=== PATIENT | male | born 1975 | race African-American/Black ===

== ENCOUNTER 2018-10-13 21:42 | Observation (INO) | payer MEDICAID ==
[2018-10-13] MEDS ORDERED: ASPIRIN 81 MG TABLET, CHEWABLE PO ONE (22:00)
--- NOTE | 2018-10-13 22:38 | RADIOLOGY REPORT (SQ) ---
EXAM DESCRIPTION: XR CHEST 1 VIEW COMPLETED DATE/TME: 10/13/2018 22:00 CLINICAL HISTORY: 43 years, Male, cp COMPARISON: 11/02/2014 chest NUMBER OF VIEWS: 1 TECHNIQUE: Portable chest LIMITATIONS: None. FINDINGS: Heart size normal. Lungs are clear. No pneumothorax. Surgical clips upper abdomen IMPRESSION: No acute cardiopulmonary process copyright 2010 [employer]- All Rights Reserved
[2018-10-13 22:49] LABS: ABSOLUTE EOSINOPHILS # (AUTO) 0.1 10^3/uL (0.0-0.6); ABSOLUTE LYMPHOCYTES (AUTO) 1.3 10^3/uL (0.5-4.7); ABSOLUTE MONOCYTES (AUTO) 0.6 10^3/uL (0.1-1.4); BASOPHILS % (AUTO) 0.9 % (0-2); EOSINOPHILS % (AUTO) 1.8 % (0-6); HEMATOCRIT 47.1 % (37.9-51.0); HEMOGLOBIN 15.9 g/dL (13.5-17.0); LYMPHOCYTES % (AUTO) 32.1 % (13-45); MEAN CORPUSCULAR HEMOGLOBIN 23.6 pg (27.0-33.4); MEAN CORPUSCULAR HGB CONC 33.7 g/dL (32.0-36.0); MEAN CORPUSCULAR VOLUME 70 fl (80-97); MONOCYTES % (AUTO) 15.7 % (3-13); PLATELET COUNT 129 10^3/uL (150-450); RED BLOOD COUNT 6.74 10^6/uL (4.35-5.55); RED CELL DISTRIBUTION WIDTH 18.5 % (11.5-14.0); SEGMENTED NEUTROPHILS % (AUTO) 49.5 % (42-78); TOTAL CELLS COUNTED % (AUTO) 100 %
[2018-10-13 23:12] LABS: ALANINE AMINOTRANSFERASE 106 U/L (21-72); ALBUMIN 4.4 g/dL (3.5-5.0); ALKALINE PHOSPHATASE 142 U/L (38-126); ANION GAP 9 (5-19); ASPARTATE AMINO TRANSFERASE 113 U/L (17-59); BILIRUBIN,DIRECT 0.3 mg/dL (0.0-0.4); BILIRUBIN,TOTAL 1.3 mg/dL (0.2-1.3); BLOOD UREA NITROGEN 11 mg/dL (7-20); CALCIUM 9.5 mg/dL (8.4-10.2); CARBON DIOXIDE 29 mmol/L (22-30); CHLORIDE 100 mmol/L (98-107); CREATINE KINASE 193 U/L (55-170); GLUCOSE 97 mg/dL (75-110); SODIUM 137.7 mmol/L (137-145)
[2018-10-13 23:24] LABS: CREATINE KINASE MB 2.31 ng/mL (<4.55)
[2018-10-13 23:26] LABS: TROPONIN I < 0.012 ng/mL
--- NOTE | 2018-10-14 00:27 | ER Document Report ---
ED Cardiac - General Chief Complaint: Palpitations Stated Complaint: CHEST PAIN Time Seen by Provider: 10/14/18 00:02 Primary Care Provider: FAHEEM MENDOZA MD [COMMUNITY BASED STAFF] - Follow up as needed TRAVEL OUTSIDE OF THE [place] IN LAST 30 DAYS: No - HPI Notes: Patient is a 43-year-old male that presents to the emergency department for chief complaint of palpitations. Patient reports intermittent palpitations starting yesterday. He states it feels like his heart is beating quickly. The symptoms last for a few seconds and then resolved. He states one time today he had some associated lightheadedness but denied any full syncopal event. He states he laid down on the ground and his symptoms resolved after a few seconds. He denies any chest pain, dyspnea, diaphoresis, nausea and vomiting. He denies any back pain to me although it was reported to nursing staff. Patient states he has had a lot going on. He is in town visiting family and reports being in a house with his 16 siblings. He states he has felt very overwhelmed and anxious recently. He denies history of cardiac disease in the past. He states he has had similar episodes while being on the monitor in the ED. Past Medical History: Asthma, hypertension, gout, hyperlipidemia Past Surgical History: Gastric sleeve Social History: Occasional alcohol, occasional tobacco, denies drug use Family History: Reviewed and noncontributory for presenting illness Allergies: Reviewed, see documented allergy list. REVIEW OF SYSTEMS: CONSTITUTIONAL : No fever No chills No diaphoresis No recent illness EENT: No vision changes No congestion No sore throat CARDIOVASCULAR: No chest pain palpitations RESPIRATORY: No shortness of breath No cough No difficulty breathing GASTROINTESTINAL: No abdominal pain No nausea No vomiting No diarrhea GENITOURINARY: No dysuria No hematuria No difficulty urinating MUSCULOSKELETAL: No back pain No leg pain No arm pain SKIN: No rashes No lesions LYMPHATIC: No swollen, enlarged glands. NEUROLOGICAL: lightheadedness No headache No weakness No paresthesias PSYCHIATRIC: No anxiety No depression PHYSICAL EXAMINATION: Vital signs reviewed, nursing noted reviewed. GENERAL: Well-appearing, well-nourished and in no acute distress. HEAD: Atraumatic, normocephalic. EYES: Eyes appear normal, extraocular movements intact, sclera anicteric, conjunctiva are normal. ENT: nares patent, oropharynx clear without exudates. Moist mucous membranes. NECK: Normal range of motion, supple without lymphadenopathy LUNGS: Breath sounds clear to auscultation bilaterally and equal. No wheezes rales or rhonchi. HEART: Regular rate and rhythm without murmurs ABDOMEN: Soft, nontender, normoactive bowel sounds. No rebound, guarding, or rigidity. No masses appreciated. EXTREMITIES: Nontender, good range of motion, no pitting or edema. NEUROLOGICAL: No focal neurological deficits. Moves all extremities spontaneously Motor and sensory grossly intact on exam. PSYCH: Normal mood, normal affect. SKIN: Warm, Dry, normal turgor, no rashes or lesions noted on exposed skin - Related Data Allergies/Adverse Reactions: NSAIDS (Non-Steroidal Anti-Inflamma [Nsaids] Allergy (Severe, Verified 11/03/15 13:03) KIDNEY FAILURE iodine [Iodine] Allergy (Verified 07/09/15 21:13) Seafood Allergy (Severe, Uncoded 07/09/15 21:13) Past Medical History - Social History Smoking Status: Current Every Day Smoker Chew tobacco use (# tins/day): No Frequency of alcohol use: Occasional Drug Abuse: None Family History: Reviewed & Not Pertinent Patient has suicidal ideation: No Patient has homicidal ideation: No - Past Medical History Cardiac Medical History: Reports: Hx Congestive Heart Failure, Hx Heart Attack, Hx Hypertension Denies: Hx Coronary Artery Disease Pulmonary Medical History: Reports: Hx Asthma Denies: Hx Bronchitis, Hx COPD, Hx Pneumonia Neurological Medical History: Reports: Hx Seizures. Denies: Hx Cerebrovascular Accident Endocrine Medical History: Reports: Hx Diabetes Mellitus Type 2 Renal/ Medical History: Denies: Hx Peritoneal Dialysis Musculoskeletal Medical History: Denies Hx Arthritis Psychiatric Medical History: Reports: Hx Post Traumatic Stress Disorder Denies: Hx Depression Traumatic Medical History: Reports: Hx Fractures Past Surgical History: Reports: Hx Abdominal Surgery - gastric sleeve (jun 27), Hx Cholecystectomy, Hx Orthopedic Surgery - Recent left ankle surgery yesterday - Immunizations Hx Diphtheria, Pertussis, Tetanus Vaccination: Yes Hx Pneumococcal Vaccination: 09/30/13 Physical Exam - Vital signs Vitals: Temp Pulse Resp BP Pulse Ox 99.0 F 92 16 126/83 H 94 10/13/18 22:02 10/13/18 22:02 10/13/18 22:02 10/13/18 22:02 10/13/18 22:02 Course - Re-evaluation Re-evalutation: 10/14/18 00:26 Vitals reviewed. Nursing notes reviewed. Patient is resting comfortably in no acute distress. His lab work today shows thrombocytopenia which is slightly more than he has had previously. He did have a gastric sleeve surgery done 3 months ago and his thrombocytopenia may have been related to his recent surgery. Patient's EKG shows runs of PVCs. The runs are at a rate of about 90. He has had multiple episodes of palpitations that coincide with runs of PVCs on his telemetry monitoring. He has remained hemodynamically stable. Patient is on defibrillator pads in case the runs become persistent and he does not cardiovert himself. I did discuss his EKG with Dr. Burns who recommends metoprolol 25 twice daily. Patient's magnesium is slightly low at 1.5 and he will be given 2 g IV replacement magnesium. Patient will be admitted to the [facility] for further telemetry and cardiac care. Case discussed with Dr. Iniguez who accepts admission. Laboratory 10/13/18 10/13/18 10/13/18 22:37 22:37 22:37 WBC 4.0 RBC 6.74 H Hgb 15.9 Hct 47.1 MCV 70 L MCH 23.6 L MCHC 33.7 RDW 18.5 H Plt Count 129 L Seg Neutrophils % 49.5 Lymphocytes % 32.1 Monocytes % 15.7 H Eosinophils % 1.8 Basophils % 0.9 Absolute Neutrophils 2.0 Absolute Lymphocytes 1.3 Absolute Monocytes 0.6 Absolute Eosinophils 0.1 Absolute Basophils 0.0 Sodium 137.7 Potassium 4.0 Chloride 100 Carbon Dioxide 29 Anion Gap 9 BUN 11 Creatinine 0.77 Est GFR ( Amer) > 60 Est GFR (Non-Af Amer) > 60 Glucose 97 Calcium 9.5 Magnesium 1.5 L Total Bilirubin 1.3 Direct Bilirubin 0.3 Neonat Total Bilirubin Not Reportable Neonat Direct Bilirubin Not Reportable Neonat Indirect Bili Not Reportable AST 113 H ALT 106 H Alkaline Phosphatase 142 H Creatine Kinase 193 H CK-MB (CK-2) 2.31 Troponin I < 0.012 Total Protein 8.0 Albumin 4.4 Chest X-Ray 10/13/18 22:00 IMPRESSION: No acute cardiopulmonary process copyright 2011 [employer]- All Rights Reserved 10/14/18 00:46 - Vital Signs Vital signs: Temp Pulse Resp BP Pulse Ox 99.0 F 92 16 126/83 H 94 10/13/18 22:02 10/13/18 22:02 10/13/18 22:02 10/13/18 22:02 10/13/18 22:02 - Laboratory Result Diagrams: 10/13/18 22:37 10/13/18 22:37 Laboratory results interpreted by me: 10/13/18 10/13/18 22:37 22:37 RBC 6.74 H MCV 70 L MCH 23.6 L RDW 18.5 H Plt Count 129 L Monocytes % 15.7 H Magnesium 1.5 L AST 113 H ALT 106 H Alkaline Phosphatase 142 H Creatine Kinase 193 H - EKG Interpretation by Me Additional EKG results interpreted by me: 10/14/18 00:35 Interpreted by myself Normal sinus rhythm, rate 87, runs of PVCs, normal axis, no ST elevation Critical Care Note - Critical Care Note Total time excluding time spent on procedures (mins): 35 Comments: 35 minutes of critical care time spent in direct contact evaluating and reevaluating the patient, treating symptoms, reviewing labs and studies and speaking with family and consultants excluding any procedures. Patient having ventricular dysrhythmia with high potential for cardiovascular decompensation Discharge - Discharge Clinical Impression: Frequent PVCs, Heart palpitations Condition: Stable Disposition: ADMITTED INPATIENT Admitting Provider: Hospitalist Unit Admitted: IMCU Referrals: FAHEEM MENDOZA MD [COMMUNITY BASED STAFF] - Follow up as needed
[2018-10-14] MEDS ORDERED: METOPROLOL TARTRATE 25 MG TABLET PO SCH (00:45)
[2018-10-14] MEDS: MAGNESIUM SULFATE/D5W 1 GM/100 ML RTUPB IV SCH ×2 (00:54→02:01)
[2018-10-14] MEDS ORDERED: MAG HYDROX/AL HYDROX/SIMETH SUSP 30 ML UDCUP PO PRN (01:29)
[2018-10-14] MEDS ORDERED: MAGNESIUM HYDROXIDE SUSP 30 ML UDCUP PO PRN (01:29)
[2018-10-14] MEDS ORDERED: ACETAMINOPHEN 325 MG TABLET PO PRN (01:29)
[2018-10-14] MEDS ORDERED: NICOTINE 21 MG/24 HR PATCH.TD24 TD PRN (01:29)
[2018-10-14] MEDS ORDERED: MORPHINE SULFATE 10 MG/ML INJ IV PRN ×5 (01:29→08:00)
[2018-10-14] MEDS ORDERED: NITROGLYCERIN 0.4 MG/TAB 25 TAB/BOTTLE SL PRN (01:29)
[2018-10-14] MEDS ORDERED: ONDANSETRON 4 MG TAB.RAPDIS PO PRN ×2 (01:31→08:00)
[2018-10-14] MEDS ORDERED: ONDANSETRON HCL INJ/PF 4 MG/2 ML SDV IV PRN ×2 (01:31→08:00)
[2018-10-14] MEDS ORDERED: ZOLPIDEM TARTRATE 5 MG TABLET PO PRN (01:31)
--- NOTE | 2018-10-14 05:46 | PDOC H&P ---
History of Present Illness Admission Date/PCP: 10/14/2018 Patient complains of: Palpitations History of Present Illness: TRAE NIEVES is a 43 year old male who presented to the emergency room with a 1 day history of palpitations. He admits that over the last day having numerous episodes of irregular beating of his heart lasting for a few seconds and being slightly faster than his usual heartbeat. These episodes had been generally painless but have gradually become accompanied by a sharp pain in his left chest with each event. They occur anywhere from 8-10 times per hour down to not occ urring for a period of several hours. They have not woken him from sleep. He views his palpitations is being of moderate to severe in nature and further admits an episode of near syncope with one episode lasting several seconds yesterday. He has a past history of hypertension but denies similar prior episodes and has not identified any aggravating or ameliorating factors for his palpitations. He does admit to being under more stress than usual as he is visiting with his family of 16 siblings and he reports having anxiety associated with some of the recent interactions with his family. Past Medical History Cardiac Medical History: Reports: Congestive Heart Failure, Myocardial Infarction, Hypertension Denies: Coronary Artery Disease Pulmonary Medical History: Reports: Asthma Denies: Bronchitis, Chronic Obstructive Pulmonary Disease (COPD), Pneumonia EENT Medical History: Denies: Cataracts, Nose - Nasal polyps Neurological Medical History: Reports: Seizures Denies: Hemorrhagic CVA, Ischemic CVA Endocrine Medical History: Reports: Diabetes Mellitus Type 2, Obesity Denies: Diabetes Mellitus Type 1, Hyperthyroidism, Hypothyroidism Renal/ Medical History: Denies: Chronic Kidney Disease, Nephrolithiasis Malignancy Medical History: Reports: None GI Medical History: Denies: Cirrhosis, Hepatitis Musculoskeltal Medical History: Denies: Arthritis, Gout Skin Medical History: Denies: Eczema, Psoriasis Psychiatric Medical History: Reports: Post Traumatic Stress Disorder Denies: Alcohol Dependency, Depression, Substance Abuse, Tobacco Dependency Traumatic Medical History: Reports: None Hematology: Reports: Anemia Denies: Bleeding Tendencies Infectious Medical History: Reports: None Past Surgical History Past Surgical History: Reports: Cholecystectomy, Orthopedic Surgery - Recent left ankle surgery yesterday, Other - Gastric sleeve bariatric surgery Social History Information Source: Patient Lives with: Alone Smoking Status: Current Every Day Smoker Frequency of Alcohol Use: None Hx Recreational Drug Use: No Drugs: None Hx Prescription Drug Abuse: No - Advance Directive Resuscitation Status: Full Code Surrogate healthcare decision maker:: Mother Family History Family History: CAD, Hypertension Parental Family History Reviewed: Yes Children Family History Reviewed: No Sibling(s) Family History Reviewed.: Yes Medication/Allergy Home Medications: Metoprolol Succinate 50 mg PO DAILY #30 tab.er.24h 09/30/13 Alprazolam [Xanax] 1 tab PO TIDP PRN 02/23/14 Oxycodone HCl/Acetaminophen [Percocet 10-325 Mg Tablet] 1 each PO Q6HP PRN 07/09/15 Albuterol Sulfate [Proair HFA] 2 puff IH Q4HP PRN 11/03/15 Amphet Asp/Amphet/D-Amphet [Adderall 30 mg Tablet] 1 tab PO DAILY 11/03/15 Lisdexamfetamine Dimesylate [Vyvanse] 1 cap PO DAILY 11/03/15 Nifedipine [Nifedical Xl] 1 tab PO DAILY 11/03/15 Prazosin HCl 1 cap PO QHS 11/03/15 Allergies/Adverse Reactions: NSAIDS (Non-Steroidal Anti-Inflamma [Nsaids] Allergy (Severe, Verified 11/03/15 13:03) KIDNEY FAILURE iodine [Iodine] Allergy (Verified 07/09/15 21:13) Seafood Allergy (Severe, Uncoded 07/09/15 21:13) Review of Systems Constitutional: ABSENT: chills, fever(s) Eyes: ABSENT: visual disturbances, other - Eye pain Ears: ABSENT: hearing changes, other - Ear pain Nose, Mouth, and Throat: ABSENT: mouth pain, sore throat Cardiovascular: PRESENT: as per HPI, palpitations, other - Near syncope. ABSENT: chest pain, dyspnea on exertion, edema, orthropnea Respiratory: PRESENT: cough. ABSENT: dyspnea Gastrointestinal: ABSENT: abdominal pain, constipation, diarrhea, nausea, vomiting Genitourinary: ABSENT: dysuria, hematuria Musculoskeletal: ABSENT: deformity, joint swelling Integumentary: ABSENT: pruritus, rash Neurological: ABSENT: confusion, convulsions, focal weakness, memory loss Psychiatric: ABSENT: anxiety, depression Endocrine: ABSENT: cold intolerance, heat intolerance Hematologic/Lymphatic: ABSENT: easy bleeding, easy bruising Physical Exam Vital Signs: Temp Pulse Resp BP Pulse Ox 99.0 F 92 15 125/87 H 99 10/13/18 22:02 10/13/18 22:02 10/14/18 00:01 10/14/18 00:01 10/14/18 00:01 Intake & Output 10/12/18 10/13/18 10/14/18 23:59 23:59 23:59 Weight 124.7 kg General appearance: PRESENT: no acute distress, cooperative, obese Head exam: PRESENT: atraumatic, normocephalic Eye exam: PRESENT: conjunctiva pink. ABSENT: scleral icterus Ear exam: PRESENT: normal external ear exam. ABSENT: bleeding, drainage Mouth exam: PRESENT: dry mucosa, neck supple Neck exam: ABSENT: thyromegaly, tracheal deviation Respiratory exam: PRESENT: clear to auscultation alphonso, symmetrical, unlabored Cardiovascular exam: PRESENT: RRR. ABSENT: clicks, gallop, rubs Pulses: PRESENT: normal radial pulses, normal dorsalis pedis pul Vascular exam: PRESENT: normal capillary refill. ABSENT: pallor GI/Abdominal exam: PRESENT: normal bowel sounds, soft Rectal exam: PRESENT: deferred Extremities exam: ABSENT: joint swelling, pedal edema Musculoskeletal exam: PRESENT: full ROM, normal inspection Neurological exam: PRESENT: alert, oriented to person, oriented to place, oriented to time, oriented to situation, CN II-XII grossly intact. ABSENT: motor sensory deficit Psychiatric exam: PRESENT: appropriate affect, normal mood Skin exam: PRESENT: dry, intact, warm. ABSENT: jaundice, rash, urticaria Results Laboratory Results: 10/13/18 22:37 10/13/18 22:37 10/13/18 10/13/18 22:37 22:37 WBC 4.0 RBC 6.74 H Hgb 15.9 Hct 47.1 MCV 70 L MCH 23.6 L MCHC 33.7 RDW 18.5 H Plt Count 129 L Seg Neutrophils % 49.5 Lymphocytes % 32.1 Monocytes % 15.7 H Eosinophils % 1.8 Basophils % 0.9 Absolute Neutrophils 2.0 Absolute Lymphocytes 1.3 Absolute Monocytes 0.6 Absolute Eosinophils 0.1 Absolute Basophils 0.0 Sodium 137.7 Potassium 4.0 Chloride 100 Carbon Dioxide 29 Anion Gap 9 BUN 11 Creatinine 0.77 Est GFR ( Amer) > 60 Est GFR (Non-Af Amer) > 60 Glucose 97 Calcium 9.5 Magnesium 1.5 L Total Bilirubin 1.3 AST 113 H ALT 106 H Alkaline Phosphatase 142 H Total Protein 8.0 Albumin 4.4 10/13/18 10/13/18 22:37 22:37 Creatine Kinase 193 H CK-MB (CK-2) 2.31 Troponin I < 0.012 Impressions: Chest X-Ray 10/13/18 22:00 IMPRESSION: No acute cardiopulmonary process copyright 2010 [employer]- All Rights Reserved Assessment & Plan - Diagnosis (1) Paroxysmal cardiac arrhythmia Is this a current diagnosis for this admission?: Yes Plan: Patient will be monitored closely throughout his hospitalization with telemetry and a variety of metabolic and other pathologic factors will be considered as sources of his paroxysmal arrhythmias. A cardiology consultation will be obtained with Dr. Burns to further evaluate patient. (2) Near syncope Is this a current diagnosis for this admission?: Yes Plan: Patient be monitored with telemetry during his hospital course and his vital signs will be checked on a regular basis. He will be continued on his usual antihypertensive medications and any further episodes of syncope or near syncope will be investigated as necessary. (3) Heart palpitations Is this a current diagnosis for this admission?: Yes Plan: Patient be monitored with telemetry during his hospital course and his vital signs will be checked on a regular basis. He will be continued on his usual antihypertensive medications as they are approved by Dr. Burns location later today. (4) Obesity Qualifiers: Obesity type: due to excess calories Serious obesity comorbidity presence: with serious comorbidity Body mass index: BMI 39.0-39.9 Is this a current diagnosis for this admission?: Yes Plan: Patient will be encouraged to make an effort at weight loss since his recent bariatric procedure by following lifestyle recommendations and diet choices given to him by his bariatric surgeon. - Time Time Spent: 30 to 50 Minutes Critical Time spent with patient: Less than 15 minutes Medications reviewed and adjusted accordingly: Yes Anticipated discharge: Home - Inpatient Certification Based on my medical assessment, after consideration of the patient's comorbidities, presenting symptoms, or acuity I expect that the services needed warrant INPATIENT care.: Yes I certify that my determination is in accordance with my understanding of Medicare's requirements for reasonable and necessary INPATIENT services [42 CFR 412.3e].: Yes Medical Necessity: Significant Comorbidiites Make Outpatient Treatment Too Risky, Need Close Monitoring Due to Risk of Patient Decompensation, Need For Continuous Telemetry Monitoring, Risk of Complication if Not Cared For in Hospital
[2018-10-14] MEDS ORDERED: HEPARIN SOD (PORCINE) 5,000 UNIT/ML 1 ML SYRINGE SUBCUT SCH (06:00)
[2018-10-14 08:28] LABS: CREATINE KINASE MB 1.46 ng/mL (<4.55)
[2018-10-14 08:31] LABS: TROPONIN I < 0.012 ng/mL
--- NOTE | 2018-10-14 09:54 | PDOC CONSULTATION ---
Consultation-Blank Consultation: CARDIOLOGY CONSULTATION/TRANSFER SUMMARY by Dr. Cammy Burns on 10/14/2018. Patient seen at 8 AM on 10/14/2018. 60 minutes spent on this patient more than 50% of time spent in direct patient care. THIS patient will patient being transferred to [facility] for EP studies to assess origin of the PVCs, and to see if the patient has an axillary pathway causing preexcitation. FINAL DIAGNOSIS ON TRANSFER 1. Symptomatic PVCs with a left bundle branch block configuration.? Right ventricular origin.: Need to assess for RV dysplasia. 2. Preexcitation versus fusion beats. EP study will define if the patient has an accessory pathway causing preexcitation. 3. Palpitations and near syncope secondary to 1., And possibly to. Although yesterday was the first episode of near syncope, the patient has had long- standing episodic palpitations, with lightheadedness off and on. 4. Hypertension: Blood pressure seems to be well controlled on nifedipine. 5. History of sleep apnea on CPAP, although the past few days he has not used it. Note that the patient's palpitations are long-standing and have occurred even when he regularly uses the BiPAP at night. 6. Mild hypomagnesemia. Corrected. 7. Obesity. Current Medications Generic Name Dose Route Start Last Admin Trade Name Freq PRN Reason Stop Dose Admin Acetaminophen 650 mg 10/14/18 01:29 10/14/18 04:09 Tylenol 325 Mg Tablet PO 11/13/18 01:28 650 mg Q4HP PRN Administration For headache, pain or fever Al Hydrox/Mg Hydrox/Simethicone 30 ml 10/14/18 01:29 10/14/18 04:14 Maalox Plus Susp 30 Udcup PO 11/13/18 01:28 30 ml Q6HP PRN Administration HEARTBURN Docusate Sodium 100 mg 10/14/18 10:00 10/14/18 09:28 Colace 100 Mg Capsule PO 11/13/18 09:59 Not Given BID ANGEL Heparin Sodium (Porcine) 5,000 unit 10/14/18 06:00 10/14/18 06:07 Heparin Inj 5,000 Units/Ml 1 Ml Syringe SUBCUT 11/13/18 05:59 5,000 unit Q8 ANGEL Administration Magnesium Hydroxide 30 ml 10/14/18 01:29 Milk Of Magnesia 30 Ml Udcup PO 11/13/18 01:28 HSP PRN FOR CONSTIPATION Morphine Sulfate 3 mg 10/14/18 07:48 Morphine 10 Mg/Ml Inj IV 10/21/18 07:47 Q2HP PRN FOR PAIN SCALE 3-4 Protocol Morphine Sulfate 4 mg 10/14/18 07:49 Morphine 10 Mg/Ml Inj IV 10/21/18 07:48 Q2HP PRN FOR PAIN SCALE 5 Protocol Morphine Sulfate 2 mg 10/14/18 08:00 Morphine 10 Mg/Ml Inj IV 10/21/18 07:47 Q2HP PRN FOR PAIN SCALE 1-2 Protocol Nicotine 1 each 10/14/18 01:29 Nicoderm 21 Mg/24 Hr Transderm Patch TD 11/13/18 01:28 DAILYP PRN WITHDRAWAL SYMPTOMS Nitroglycerin 1 tab 10/14/18 01:29 Nitrostat 0.4 Mg (1/150 Gr) Tabs 25/Bottle SL 11/13/18 01:28 Q5MP PRN FOR CHEST PAIN Ondansetron HCl 4 mg 10/14/18 08:00 Zofran Inj/Pf 4 Mg/2 Ml Sdv IV 11/13/18 01:30 Q4HP PRN FOR NAUSEA/VOMITING Ondansetron HCl 4 mg 10/14/18 08:00 Zofran Odt 4 Mg Tablet PO 11/13/18 01:30 Q4HP PRN FOR NAUSEA/VOMITING Sodium Chloride 2.5 ml 10/14/18 06:00 10/14/18 06:07 Saline Flush 2.5 Ml Monoject Prefil Syrin IV 11/13/18 05:59 2.5 ml Q8 ANGEL Administration Zolpidem Tartrate 10 mg 10/14/18 01:31 Ambien 5 Mg Tablet PO 10/21/18 01:30 HSP PRN SLEEP OR INSOMNIA Discontinued Medications Generic Name Dose Route Start Last Admin Trade Name Freq PRN Reason Stop Dose Admin Aspirin 324 mg 10/13/18 22:00 10/13/18 22:12 Aspirin 81 Mg Chewable Tablet PO 10/13/18 22:01 324 mg NOW ONE Administration Magnesium Sulfate/Dextrose 1 gm in 100 mls @ 100 mls/hr 10/14/18 00:45 10/14/18 03:02 Magnesium Sulfate Rtu-D5w 1 Gm/100 Ml Premix IV 10/14/18 02:44 Infused Q1H ANGEL Infusion Metoprolol Tartrate 25 mg 10/14/18 00:45 10/14/18 00:54 Lopressor 25 Mg Tablet PO 11/13/18 00:44 25 mg BID ANGEL Administration Morphine Sulfate 0 mg 10/14/18 01:29 Morphine 10 Mg/Ml Inj IV 10/21/18 01:28 Q2HP PRN Pain Per [facility] 5 point scale SD Protocol Morphine Sulfate 2 mg 10/14/18 07:48 Morphine 10 Mg/Ml Inj IV 10/21/18 07:47 Q2HP PRN PRE PAIN SCALE 1-2 Protocol Ondansetron HCl 4 mg 10/14/18 01:31 Zofran Inj/Pf 4 Mg/2 Ml Sdv IV 11/13/18 01:30 Q4HP PRN FOR NAUSEA/VOMITING Ondansetron HCl 4 mg 10/14/18 01:31 Zofran Odt 4 Mg Tablet PO 11/13/18 01:30 Q4HP PRN FOR NAUSEA/VOMITING HISTORY OF PRESENT ILLNESS: Patient is a pleasant 43-year-old -[place] male, with known history of hypertension, obesity, and obstructive sleep apnea on CPAP states that recently he has been visiting his family of 16 siblings, and has had increased stress. He also noted to have noticed yesterday that he had palpitations which is states is a skipped beat, with occasional lightheadedness, but with no chest pain, or shortness of breath. It is not related to exertion, and there is not increased or brought on by exertion. He had one episode of a few seconds of near syncope yesterday. He denies any PND orthopnea or yaima syncope. There is no leg edema. There is no focal weaknesses of the extremities. He denies any headaches, or any acute pain anywhere in the body. The patient in the emergency room was found to have a magnesium of 1.5, which is mildly reduced, and this has been replaced by 1 g of intravenous magnesium sulfate. PAST MEDICAL HISTORY: Denies history of coronary artery disease or ID or anginal symptoms. No history of congestive heart failure. History of hypertension present. No history of diabetes mellitus. No history of thyroid disease. He has a history of asthma and does use inhalers a little more frequently in the recent past few days. But he has had a long-standing history of using inhalers for his asthma, and this is not increased or seems to be related to the patient's palpitations. He does have sleep apnea and uses BiPAP. There is no history of chronic kidney disease. There is no history of TIA or CVA symptoms. Although the patient is under a lot of stress in the past few days, he has no definite diagnosis of anxiety or depression. There is no history of sudden . Past SURGICAL HISTORY: He Has Fusion of His Left Ankle Due To a Fracture. He has had bariatric surgery/gastric bypass surgery for weight loss. FAMILY HISTORY: Is positive for myocardial infarction in his brother. There is no history of sudden . ALLERGIES: The patient is allergic to shellfish, iodine and nonsteroidal anti- inflammatory drugs. SOCIAL HISTORY: The patient quit smoking 2 years ago. But states that he did smoke in a libertarian 3 days ago. There is no history of street drug abuse. There is no history of alcohol abuse. Note that the patient to be November,. DISPOSITION: The patient is a full code. His mother is his surrogate healthcare decision maker. REVIEW OF SYSTEMS: CONSTITUTIONAL: Denies any fever chills or rigors. There is no generalized fatigue or weakness. HEAD: Denies headaches or head injury. EYES: No history of amblyopia diplopia. No history of amaurosis fugax. EARS: N o history of hearing loss. No history of tinnitus. No history of recurrent ear infections. NOSE: No history of hayfever. No history of nasal polyps. No history of nosebleeds. MOUTH: No history of altered taste sensation. No ulcers in the mouth. No bleeding from the gums. THROAT: No history of odynophagia or dysphagia. No history of recurrent sore throats. SKIN: No history of pruritus. No history of yellowish discoloration of the skin. LUNGS: History of asthma present. Mild intermittent. Extrinsic asthma. He did use an inhaler a few days ago. No history of COPD. No history of pulmonary embolism. No hemoptysis. No history of pleuritic chest pain. No symptoms of upper or lower respiratory tract infection. History of sleep apnea uses BiPAP, although he is not used it in couple of days. HEART: History of hypertension present. History of long-standing palpitations. History of near syncope, but no yaima syncope. No history of congestive heart failure. No history of coronary artery disease, ID or anginal symptoms. No history of PND orthopnea or leg edema. No history of sudden . ENDOCRINE: No history of diabetes mellitus or thyroid disease. No history of polydipsia polyuria. No history of heat or cold intolerance. MUSCULOSKELETAL: Denies arthritis or collagen vascular disease. METABOLIC: History of obesity. He states he has lost weight after bariatric surgery. RENAL: No history of chronic kidney disease. No history of hematuria pyuria or dysuria. No history of symptoms of enlarged prostate. GI: NO HISTORY OF GERD. NO HISTORY OF PEPTIC ULCER DISEASE. NO HISTORY OF GI BLEED. NO HISTORY OF FATTY FOOD INTOLERANCE. NO HISTORY OF ASCITES. NO HISTORY OF JAUNDICE. NO HISTORY OF ALTERED BOWEL MOVEMENTS. CUTTER TENDER: No history of TIA CVA. No history of headaches migraines or seizures. PSYCHIATRIC: No definite history of anxiety or depression, although the patient recently has been in a lot of stress due to family issues. No suicidal ideation. No homicidal ideation. VASCULAR: No history of calf or buttock claudication. No history of DVT. HEMATOLOGICAL: No history of anemia.. No history of bleeding diathesis. No history of clotting disorders. No history of sickle cell anemia. No history of blood dyscrasias. PHYSICAL EXAMINATION: The patient is moderately obese. He is well-groomed. He is in no acute distress. 10/14/18 08:32 Temperature 98.2 F Temperature Oral Source Pulse Rate 77 Respiratory 13 Rate Blood Pressure 133/62 H Blood Pressure 85 Mean BP Location Right Arm BP Position Supine O2 Sat by Pulse 99 Oximetry Oxygen Delivery Room Air Method HEAD: Is atraumatic normocephalic. EYES: Pupils are equal round regular reactive to light accommodation. Extraocular movements are normal. There is no conjunctival l pallor. There is no scleral icterus. EARS: Tympanic memories are intact. External auditory canals are clear. EYES: Pupils are equal round regular reactive to light accommodation, there is no clinical pallor. There is no scleral icterus. NOSE: Nasal mucous membranes are without any inflammation. There is no deviated nasal septum. MOUTH: Mucous mucous members of the mouth are moist. Tongue is moist. There is no ulcers in the mouth. There is no bleeding from the gums. THROAT: There is no redness of the oropharynx. There is no exudates. SKIN: There is no petechia or ecchymosis. There is no skin lesions or skin rashes. NECK: Is supple. There is no JVD. Carotids are equal without any bruits. There is no transmitted murmurs over the carotids. There is no carotid delay. There is no lymphadenopathy. There is no goiter. There is no accessory muscle respiration use. Trachea central. LUNGS: Is clear to auscultation percussion, without any rhonchi rales or wheezing.. There is no chest wall tenderness on palpation. HEART: S1-S2 is heard. There is no S3 gallop. There is no S4 gallop. S1 is of normal intensity. There is systolic murmur left sternal border and the apex. There is no rub. ABDOMEN: Is soft. Nontender. There is no masses. Bowel sounds are normal. There is no hepatosplenomegaly. There is no rebound, guarding or rigidity. EXTREMITIES: Femorals are well felt. There is no femoral bruits. Leg pulses are well felt. There is no pedal edema. There is no DVT or cellulitis. There is no calf tenderness. No cyanosis or clubbing capillary refill is normal. CUTTER TENDER: The patient is conscious awake alert oriented x3 with no focal deficit. PSYCHIATRIC: The patient judgment and insight are intact. His affect is normal. THE patient's EKG shows sinus rhythm. There PVCs of the left bundle branch configuration. There is also wide complex beats the differential of which is fusion beats versus ventricular preexcitation. Chest X-Ray 10/13/18 22:00 IMPRESSION: No acute cardiopulmonary process copyright 2011 [employer]- All Rights Reserved Labs- Entire Visit 10/13/18 10/13/18 10/13/18 22:37 22:37 22:37 WBC 4.0 RBC 6.74 H Hgb 15.9 Hct 47.1 MCV 70 L MCH 23.6 L MCHC 33.7 RDW 18.5 H Plt Count 129 L Seg Neutrophils % 49.5 Lymphocytes % 32.1 Monocytes % 15.7 H Eosinophils % 1.8 Basophils % 0.9 Absolute Neutrophils 2.0 Absolute Lymphocytes 1.3 Absolute Monocytes 0.6 Absolute Eosinophils 0.1 Absolute Basophils 0.0 Sodium 137.7 Potassium 4.0 Chloride 100 Carbon Dioxide 29 Anion Gap 9 BUN 11 Creatinine 0.77 Est GFR ( Amer) > 60 Est GFR (Non-Af Amer) > 60 Glucose 97 Calcium 9.5 Magnesium 1.5 L Total Bilirubin 1.3 Direct Bilirubin 0.3 Neonat Total Bilirubin Not Reportable Neonat Direct Bilirubin Not Reportable Neonat Indirect Bili Not Reportable AST 113 H ALT 106 H Alkaline Phosphatase 142 H Creatine Kinase 193 H CK-MB (CK-2) 2.31 Troponin I < 0.012 Total Protein 8.0 Albumin 4.4 10/14/18 10/14/18 10/14/18 02:00 07:40 07:40 WBC RBC Hgb Hct MCV MCH MCHC RDW Plt Count Seg Neutrophils % Lymphocytes % Monocytes % Eosinophils % Basophils % Absolute Neutrophils Absolute Lymphocytes Absolute Monocytes Absolute Eosinophils Absolute Basophils Sodium Potassium Chloride Carbon Dioxide Anion Gap BUN Creatinine Est GFR ( Amer) Est GFR (Non-Af Amer) Glucose Calcium Magnesium Total Bilirubin Direct Bilirubin Neonat Total Bilirubin Neonat Direct Bilirubin Neonat Indirect Bili AST ALT Alkaline Phosphatase Creatine Kinase 155 CK-MB (CK-2) 1.46 Troponin I < 0.012 < 0.012 Total Protein Albumin Albuterol Sulfate [Proair Hfa Inhalation Aerosol 8.5 gm Mdi] 2 puff IH Q4HP PRN 10/14/18 Multivitamin [One-A-Day Essential] 1 each PO DAILY 10/14/18 Nifedipine [Nifedipine ER] 30 mg PO DAILY 10/14/18 PLAN: The patient was discussed with Dr. Reyes, EP amusement ride operator at [facility] in [place], who agrees the patient would benefit from a EP study. The patient has been kept n.p.o. We will transfer the patient to [facility]. The patient is aware of the risks and benefits of the transfer. Medical decision making is of high complexity. 60 minutes spent on this patient with more than 50% of time spent in direct patient care.
[2018-10-14] MEDS ORDERED: DOCUSATE SODIUM 100 MG CAPSULE PO SCH (10:00)
--- NOTE | 2018-10-14 10:02 | PDOC PROGRESS REPORT ---
Subjective Progress Note for:: 10/14/18 Subjective:: Patient being transferred to [facility] for cardiac arrhythmia. Reason For Visit: PAROXYSMAL CARDIAC ARRHYTYMIA Physical Exam Vital Signs: Temp Pulse Resp BP Pulse Ox 98.2 F 77 13 133/62 H 99 10/14/18 08:32 10/14/18 08:32 10/14/18 08:32 10/14/18 08:32 10/14/18 08:32 Intake & Output 10/13/18 10/14/18 10/15/18 06:59 06:59 06:59 Intake Total 200 Balance 200 Weight 122.4 kg General appearance: PRESENT: mild distress - Anxious about transfer Head exam: PRESENT: normocephalic Respiratory exam: PRESENT: clear to auscultation alphonso. ABSENT: rales, rhonchi, wheezes Cardiovascular exam: PRESENT: RRR, +S1, +S2 GI/Abdominal exam: PRESENT: normal bowel sounds, soft. ABSENT: tenderness Neurological exam: PRESENT: alert, awake, oriented to person, oriented to place, oriented to time, oriented to situation, CN II-XII grossly intact Psychiatric exam: PRESENT: anxious Results Laboratory Results: 10/13/18 22:37 10/13/18 22:37 10/13/18 10/13/18 22:37 22:37 WBC 4.0 RBC 6.74 H Hgb 15.9 Hct 47.1 MCV 70 L MCH 23.6 L MCHC 33.7 RDW 18.5 H Plt Count 129 L Seg Neutrophils % 49.5 Lymphocytes % 32.1 Monocytes % 15.7 H Eosinophils % 1.8 Basophils % 0.9 Absolute Neutrophils 2.0 Absolute Lymphocytes 1.3 Absolute Monocytes 0.6 Absolute Eosinophils 0.1 Absolute Basophils 0.0 Sodium 137.7 Potassium 4.0 Chloride 100 Carbon Dioxide 29 Anion Gap 9 BUN 11 Creatinine 0.77 Est GFR ( Amer) > 60 Est GFR (Non-Af Amer) > 60 Glucose 97 Calcium 9.5 Magnesium 1.5 L Total Bilirubin 1.3 AST 113 H ALT 106 H Alkaline Phosphatase 142 H Total Protein 8.0 Albumin 4.4 10/13/18 10/13/18 10/14/18 22:37 22:37 02:00 Creatine Kinase 193 H CK-MB (CK-2) 2.31 Troponin I < 0.012 < 0.012 10/14/18 10/14/18 07:40 07:40 Creatine Kinase 155 CK-MB (CK-2) 1.46 Troponin I < 0.012 Impressions: Chest X-Ray 10/13/18 22:00 IMPRESSION: No acute cardiopulmonary process copyright 2011 [employer]- All Rights Reserved Assessment & Plan - Diagnosis (1) Paroxysmal cardiac arrhythmia Is this a current diagnosis for this admission?: Yes Plan: The patient was evaluated by Dr. Burns. It appears that the patient may have Obous-Rsysdnxft-Nbzir arrhythmia. Dr. Burns has arranged transfer to [facility]. I saw the patient to review the transfer with regard to consent and benefits of transfer. The patient is in agreement. Please see Dr. Burns's note for transfer summary. - Time Time Spent with patient: Less than 15 minutes Anticipated discharge: [facility] Within: within 24 hours
--- NOTE | 2018-10-14 12:40 | EKG REPORT ---
SEVERITY:- ABNORMAL ECG - SINUS RHYTHM LEFT BUNDLE BRANCH BLOCK : Confirmed by: Cammy Burns MD 14-Oct-2018 12:40:12
--- NOTE | 2018-10-14 12:43 | EKG REPORT ---
SEVERITY:- ABNORMAL ECG - SINUS RHYTHM PVC'S IN LIMB LEADS..FUSION BEATS VERSUS PRE-EXCITATION IN THE VLEADS V4TO V6. : Confirmed by: Cammy Burns MD 14-Oct-2018 12:42:17
[2018-10-14 14:46] LABS: CREATINE KINASE MB 1.08 ng/mL (<4.55)
[2018-10-14 14:53] LABS: TROPONIN I < 0.012 ng/mL
[2018-10-14 16:31] VITALS: BP 131/77
[2018-10-14 20:18] LABS: CREATINE KINASE MB 0.78 ng/mL (<4.55)
[2018-10-14 20:24] LABS: TROPONIN I < 0.012 ng/mL
--- NOTE | 2018-10-18 06:43 | PDOC TRANSFER SUMMARY ---
General Admission Date/PCP: 10/14/18 01:10 Transfer Date: 10/14/18 Accepting Facility: [facility] Accepting Physician: Amy Resuscitation Status: Full Code - Transfer Diagnosis (1) Paroxysmal cardiac arrhythmia Is this a current diagnosis for this admission?: Yes - Transfer Medications Home Medications: Albuterol Sulfate [Proair Hfa Inhalation Aerosol 8.5 gm Mdi] 2 puff IH Q4HP PRN 10/14/18 Multivitamin [One-A-Day Essential] 1 each PO DAILY 10/14/18 Nifedipine [Nifedipine ER] 30 mg PO DAILY 10/14/18 - Allergies Allergies/Adverse Reactions: NSAIDS (Non-Steroidal Anti-Inflamma [Nsaids] Allergy (Severe, Verified 11/03/15 13:03) KIDNEY FAILURE shellfish derived Allergy (Severe, Verified 10/14/18 07:39) iodine [Iodine] Allergy (Verified 07/09/15 21:13) Physical Exam Vital Signs: Temp Pulse Resp BP Pulse Ox 98.1 F 82 16 131/77 H 98 10/14/18 15:31 10/14/18 19:00 10/14/18 15:31 10/14/18 15:31 10/14/18 15:31 Results Laboratory Results: 10/13/18 22:37 10/13/18 22:37 10/13/18 10/13/18 10/14/18 22:37 22:37 02:00 Creatine Kinase 193 H CK-MB (CK-2) 2.31 Troponin I < 0.012 < 0.012 10/14/18 10/14/18 10/14/18 07:40 07:40 13:44 Creatine Kinase 155 154 CK-MB (CK-2) 1.46 Troponin I < 0.012 10/14/18 10/14/18 10/14/18 13:44 19:40 19:40 Creatine Kinase 142 CK-MB (CK-2) 1.08 0.78 Troponin I < 0.012 < 0.012 Impressions: Chest X-Ray 10/13/18 22:00 IMPRESSION: No acute cardiopulmonary process copyright 2011 [employer]- All Rights Reserved Plan Discharge Plan: Please see Dr. Burns is transfer/consultation note. Dr. Burns spoke to Dr. Reyes and arrange transfer. Time Spent: Less than 30 Minutes
== END 2018-10-14 20:40 | disposition short-term general hospital (02) ==
LOC: ER 21:42 → EH 10-14 01:10 → INTOOBSV 10-14 01:10 → 3W 10-14 03:07
PROVIDERS: ADMIT Emergency Medicine; ATTEND Emergency Medicine
DX: I49.8 Other specified cardiac arrhythmias (principal); R55 Syncope and collapse; I49.3 Ventricular premature depolarization; I10 Essential (primary) hypertension; G47.33 Obstructive sleep apnea (adult) (pediatric); E83.42 Hypomagnesemia; E66.9 Obesity, unspecified; R42 Dizziness and giddiness; J45.20 Mild intermittent asthma, uncomplicated; R07.9 Chest pain, unspecified; F41.9 Anxiety disorder, unspecified; F17.200 Nicotine dependence, unspecified, uncomplicated; R05 Cough; E66.09 Other obesity due to excess calories; Z68.39 Body mass index [BMI] 39.0-39.9, adult; D69.6 Thrombocytopenia, unspecified; Z98.84 Bariatric surgery status; Z79.899 Other long term (current) drug therapy; Z82.49 Family history of ischemic heart disease and other diseases of the circulatory system; Z63.8 Other specified problems related to primary support group; Z90.49 Acquired absence of other specified parts of digestive tract
CPT/HCPCS: 93005 ×2; 99291; 96365; 36415 ×2; 82553 ×2; 82550 ×2; 83735; 85025; 80053; 84484 ×2; 71045; 93010 ×2; J1644; J3475; J3490; G0378